=== PATIENT | male | born 1940 | race Hispanic/Latino ===

== ENCOUNTER 2019-12-09 09:42 | Outpatient (CLI) | payer MEDICARE ==
--- NOTE | 2019-12-09 10:14 | XRay Report ---
CHEST 2 VIEWS INDICATION: SHORTNESS OF BREATH R06.02. COMPARISON: None FINDINGS: Support devices: None. Heart: Sternotomy change and prosthetic cardiac valve. Normal heart size. Lungs/pleura: No acute air space or interstitial disease. No pneumothorax. Additional findings: None. IMPRESSION: 1. No acute findings. Signer Name: Osmany Fernandez MD Signed: 12/09/2019 10:09 AM Workstation Name: [id number]
== END 2019-12-09 09:43 | disposition home or self-care (01) ==
LOC: SPVIMAG 09:42
PROVIDERS: ATTEND Internal Medicine
DX: R06.02 Shortness of breath (principal); Z98.890 Other specified postprocedural states; Z95.2 Presence of prosthetic heart valve
CPT/HCPCS: 71046